=== PATIENT | female | born 1975 | race Asian ===

== ENCOUNTER 2016-12-08 00:06 | Emergency (ER) | payer OTHER ==
[~2016-12-08] VITALS: Ht 162.6 cm; Wt 86.4 kg
[2016-12-08] MEDS ORDERED: METF500T4 PO (00:26)
[2016-12-08] MEDS ORDERED: LISI-662 PO (00:26)
[2016-12-08] MEDS ORDERED: METO50 PO (00:26)
[2016-12-08] MEDS ORDERED: GLIP10 PO (00:26)
[2016-12-08] MEDS ORDERED: OMEG-53 PO (00:26)
[2016-12-08 00:32] LABS: GLUCOSE,POINT OF CARE 174 MG/DL (70-110)
[2016-12-08 02:04] LABS: BASOPHILS # (AUTO) 0.02 K/uL (0.00-0.20); BASOPHILS % (AUTO) 0.3 % (0.0-2.0); EOSINOPHILS # (AUTO) 0.19 K/uL (0.00-0.70); EOSINOPHILS % (AUTO) 1.96 % (1.0-6.0); HEMATOCRIT 40.7 % (36-46); HEMOGLOBIN 13.3 g/dL (12.0-16.0); LYMPHOCYTES # (AUTO) 3.4 K/uL (1.0-4.8); MEAN CORPUSCULAR HEMOGLOBIN 28.2 pg (26.0-34.0); MEAN CORPUSCULAR HGB CONC 32.6 G/dL (31.0-37.0); MEAN CORPUSCULAR VOLUME 87 fL (80-100); MONOCYTES # (AUTO) 0.7 K/uL (0.1-1.0); MONOCYTES % (AUTO) 7.3 % (2.0-9.0); NEUTROPHILS # (AUTO) 5.4 K/uL (1.8-7.7); NEUTROPHILS % (AUTO) 55.5 % (40.0-70.0); PLATELET COUNT (AUTO) 263 K/uL (150-450); RED BLOOD CELL COUNT(AUTO) 4.69 MIL/uL (4.00-5.20); RED CELL DISTRIBUTION WIDTH 13.8 % (11.5-14.5); WHITE BLOOD COUNT (AUTO) 9.8 K/uL (4.5-11.0)
[2016-12-08 02:15] LABS: INR 0.9 (0.9-1.1); PROTHROMBIN TIME 9.6 SEC (9.4-11.6)
[2016-12-08 02:22] LABS: ANION GAP 11 mmol/L (8-16); CALCIUM, TOTAL 9.3 mg/dL (8.8-10.5); CARBON DIOXIDE 28 mmol/L (22-29); CHLORIDE 104 mmol/L (98-107); CREATININE 0.72 mg/dL (0.60-1.30); GLOMERULAR FILTR. RATE CALC > 60 mL/min (>60); POTASSIUM 3.5 mmol/L (3.5-5.1); SODIUM SERUM 143 mmol/L (136-145); UREA NITROGEN, BLOOD 13 mg/dL (7-18)
[2016-12-08 02:46] LABS: ALANINE AMINOTRANSFERASE 62 U/L (12-78); ALBUMIN 3.5 g/dL (3.4-5.0); ASPARTATE AMINOTRANSFERASE 25 U/L (15-37); BILIRUBIN,TOTAL 0.2 mg/dL (0.1-1.0); CREATINE KINASE MB 0.7 ng/mL (0-5); CREATINE KINASE, TOTAL 98 U/L (26-192); TOTAL PROTEIN, SERUM 6.9 g/dL (6.4-8.2)
[2016-12-08] MEDS ORDERED: MECLIZINE HCL 25 MG TABLET PO ONE (03:00)
[2016-12-08 03:51] VITALS: BP 150/68
== END 2016-12-08 03:59 | disposition home or self-care (01) ==
LOC: EMS 00:09
DX: R42 Dizziness and giddiness (principal); J45.909 Unspecified asthma, uncomplicated; E11.9 Type 2 diabetes mellitus without complications; E78.00 Pure hypercholesterolemia, unspecified; I10 Essential (primary) hypertension
CPT/HCPCS: 70450; 82962; 93005; 99285

== ENCOUNTER 2017-07-04 21:29 | Emergency (ER) | payer SELFPAY ==
[~2017-07-04] VITALS: Ht 157.5 cm; Wt 81.8 kg
[~2017-07-04 21:29] MED LIST: GLIP10 PO; LISI-662 PO; METF500T4 PO; METO50 PO; OMEG-53 PO
[2017-07-04 21:53] LABS: GLUCOSE,POINT OF CARE 171 MG/DL (70-110)
[2017-07-04 22:42] LABS: BASOPHILS % (AUTO) 0.5 % (0.0-2.0); EOSINOPHILS % (AUTO) 1.7 % (1.0-6.0); HEMATOCRIT 38.5 % (36-46); HEMOGLOBIN 12.9 g/dL (12.0-16.0); LYMPHOCYTES # (AUTO) 2.4 K/uL (1.0-4.8); LYMPHOCYTES % (AUTO) 14.3 % (22.0-44.0); MEAN CORPUSCULAR HGB CONC 33.6 G/dL (31.0-37.0); MEAN CORPUSCULAR VOLUME 86 fL (80-100); NEUTROPHILS # (AUTO) 12.8 K/uL (1.8-7.7); NEUTROPHILS % (AUTO) 77.5 % (40.0-70.0); PLATELET COUNT (AUTO) 249 K/uL (150-450); RED BLOOD CELL COUNT(AUTO) 4.46 MIL/uL (4.00-5.20); RED CELL DISTRIBUTION WIDTH 13.7 % (11.5-14.5)
[2017-07-05] MEDS ORDERED: SODIUM CHLORIDE 0.9% 1,000 ML IV ONE (01:00)
[2017-07-05] MEDS ORDERED: KETOROLAC TROMETHAMINE 30 MG/ML VIAL IVP ONE (01:00)
[2017-07-05 01:47] VITALS: BP 122/81
== END 2017-07-05 02:08 | disposition home or self-care (01) ==
LOC: EMS 21:35
DX: O03.4 Incomplete spontaneous abortion without complication (principal); J45.909 Unspecified asthma, uncomplicated; E11.9 Type 2 diabetes mellitus without complications; E78.00 Pure hypercholesterolemia, unspecified; I10 Essential (primary) hypertension; Z88.8 Allergy status to other drugs, medicaments and biological substances
CPT/HCPCS: 36415; 76801; 76817; 82962; 84702; 85025; 86901; 88305; 96361; 96374; 99285; J1885; J7030

== ENCOUNTER 2018-03-07 22:17 | Emergency (ER) | payer SELFPAY ==
[~2018-03-07] VITALS: Ht 157.5 cm; Wt 81.8 kg
[~2018-03-07 22:17] MED LIST changes: +METF-960 PO; -METF500T4 PO; -METO50 PO
[2018-03-07] MEDS ORDERED: ASPI-556 PO (22:43)
[2018-03-07] MEDS ORDERED: CALC625T PO (22:43)
[2018-03-07 23:24] LABS: BASOPHILS % (AUTO) 0.7 % (0.0-2.0); EOSINOPHILS % (AUTO) 1.8 % (1.0-6.0); HEMOGLOBIN 12.7 g/dL (12.0-16.0); LYMPHOCYTES # (AUTO) 3.2 K/uL (1.0-4.8); LYMPHOCYTES % (AUTO) 31.8 % (22.0-44.0); MEAN CORPUSCULAR HEMOGLOBIN 29.2 pg (26.0-34.0); MEAN CORPUSCULAR HGB CONC 34.4 G/dL (31.0-37.0); MEAN CORPUSCULAR VOLUME 85 fL (80-100); MONOCYTES # (AUTO) 0.6 K/uL (0.1-1.0); MONOCYTES % (AUTO) 5.8 % (2.0-9.0); NEUTROPHILS % (AUTO) 59.9 % (40.0-70.0); PLATELET COUNT (AUTO) 257 K/uL (150-450); RED BLOOD CELL COUNT(AUTO) 4.36 MIL/uL (4.00-5.20); RED CELL DISTRIBUTION WIDTH 13.5 % (11.5-14.5)
[2018-03-07 23:34] LABS: ANION GAP 6 mmol/L (8-16); CALCIUM, TOTAL 8.3 mg/dL (8.8-10.5); CARBON DIOXIDE 28 mmol/L (22-29); CHLORIDE 105 mmol/L (98-107); CREATININE 0.77 mg/dL (0.60-1.30); GLOMERULAR FILTR. RATE CALC > 60 mL/min (>60); GLUCOSE,RANDOM 176 mg/dL (70-110); SODIUM SERUM 139 mmol/L (136-145); UREA NITROGEN, BLOOD 14 mg/dL (7-18)
[2018-03-07 23:40] LABS: ALANINE AMINOTRANSFERASE 21 U/L (12-78); ALBUMIN 3.2 g/dL (3.4-5.0); ALKALINE PHOSPHATASE 79 U/L (46-116); ASPARTATE AMINOTRANSFERASE 9 U/L (15-37); BILIRUBIN,TOTAL 0.2 mg/dL (0.1-1.0)
[2018-03-08 01:05] VITALS: BP 146/86
== END 2018-03-08 01:13 | disposition home or self-care (01) ==
LOC: EMS 22:19
DX: R42 Dizziness and giddiness (principal); I10 Essential (primary) hypertension; E11.9 Type 2 diabetes mellitus without complications; E78.00 Pure hypercholesterolemia, unspecified; J45.909 Unspecified asthma, uncomplicated; Z79.84 Long term (current) use of oral hypoglycemic drugs; Z79.82 Long term (current) use of aspirin
CPT/HCPCS: 70450; 93005; 99285

== ENCOUNTER 2019-04-02 21:06 | Emergency (ER) | payer OTHER ==
[~2019-04-02] VITALS: Ht 157.5 cm; Wt 81.8 kg
[~2019-04-02 21:06] MED LIST changes: +ASPI-556 PO; +CALC625T PO
[2019-04-02 21:28] LABS: GLUCOSE,POINT OF CARE 239 MG/DL (70-110)
[2019-04-02 21:59] LABS: BASOPHILS % (AUTO) 0.5 % (0.0-2.0); EOSINOPHILS % (AUTO) 1.6 % (1.0-6.0); HEMATOCRIT 41.7 % (36-46); LYMPHOCYTES # (AUTO) 2.9 K/uL (1.0-4.8); LYMPHOCYTES % (AUTO) 29.2 % (22.0-44.0); MEAN CORPUSCULAR HEMOGLOBIN 29.2 pg (26.0-34.0); MEAN CORPUSCULAR HGB CONC 33.6 G/dL (31.0-37.0); MEAN CORPUSCULAR VOLUME 87 fL (80-100); MONOCYTES # (AUTO) 0.6 K/uL (0.1-1.0); MONOCYTES % (AUTO) 5.7 % (2.0-9.0); NEUTROPHILS # (AUTO) 6.4 K/uL (1.8-7.7); PLATELET COUNT (AUTO) 268 K/uL (150-450); RED BLOOD CELL COUNT(AUTO) 4.81 MIL/uL (4.00-5.20); RED CELL DISTRIBUTION WIDTH 13.1 % (11.5-14.5)
[2019-04-02] MEDS ORDERED: SODIUM CHLORIDE 0.9% 1,000 ML IV ONE (22:00)
[2019-04-02] MEDS ORDERED: METOCLOPRAMIDE HCL 5 MG/ML 2 ML VIAL IVP ONE (22:00)
[2019-04-02] MEDS ORDERED: DiphenhydrAMINE HCL 50 MG/ML VIAL IVP ONE (22:00)
[2019-04-02] MEDS ORDERED: LIDOCAINE 5% TRANSDERMAL PATCH TD ONE (22:00)
[2019-04-02] MEDS ORDERED: DEXAMETHASONE SOD PHOS 4 MG/ML 5 ML VIAL IVP ONE (22:00)
[2019-04-02] MEDS ORDERED: KETOROLAC TROMETHAMINE 30 MG/ML VIAL IVP ONE (22:00)
[2019-04-02 22:11] LABS: ANION GAP 7 mmol/L (8-16); CALCIUM, TOTAL 8.6 mg/dL (8.8-10.5); CARBON DIOXIDE 28 mmol/L (22-29); CHLORIDE 100 mmol/L (98-107); CREATININE 0.81 mg/dL (0.60-1.30); GLOMERULAR FILTR. RATE CALC > 60 mL/min (>60); GLUCOSE,RANDOM 271 mg/dL (70-110); POTASSIUM 3.5 mmol/L (3.5-5.1); SODIUM SERUM 135 mmol/L (136-145)
[2019-04-02 22:32] LABS: ALANINE AMINOTRANSFERASE 20 U/L (12-78); ALBUMIN 3.4 g/dL (3.4-5.0); ALKALINE PHOSPHATASE 70 U/L (46-116); ASPARTATE AMINOTRANSFERASE 10 U/L (15-37); BILIRUBIN,TOTAL 0.2 mg/dL (0.1-1.0); CREATINE KINASE, TOTAL ONLY 102 U/L (26-192); TOTAL PROTEIN, SERUM 7.3 g/dL (6.4-8.2); UREA NITROGEN, BLOOD 15 mg/dL (7-18)
[2019-04-03] MEDS ORDERED: CYCLOBENZAPRINE HCL 10 MG TABLET PO ONE (00:30)
[2019-04-03] MEDS ORDERED: LIDOCAINE 5% TRANSDERMAL PATCH TD ONE (00:30)
[2019-04-03 01:05] VITALS: BP 141/96
== END 2019-04-03 01:36 | disposition home or self-care (01) ==
LOC: EMS 21:06
DX: R51 Headache (principal); M54.2 Cervicalgia; R42 Dizziness and giddiness; J45.909 Unspecified asthma, uncomplicated; E11.9 Type 2 diabetes mellitus without complications; I10 Essential (primary) hypertension; E78.00 Pure hypercholesterolemia, unspecified; Z79.899 Other long term (current) drug therapy; Z79.84 Long term (current) use of oral hypoglycemic drugs; Z79.82 Long term (current) use of aspirin
CPT/HCPCS: 36415; 80053; 82550; 82962; 84484; 85025; 93005; 96374; 96375; 99284; J1100; J1200; J1885; J2765; J7030; 10060

== ENCOUNTER 2022-02-04 16:43 | Emergency (ER) | payer OTHER ==
[~2022-02-04] VITALS: Ht 162.6 cm; Wt 86.4 kg
[~2022-02-04 16:43] MED LIST changes: -GLIP10 PO; +GLIP10TA10 PO; -LISI-662 PO; +LISI-894 PO; +METF-1211 PO; -METF-960 PO
[2022-02-04 18:46] VITALS: BP 135/74
[2022-02-04] MEDS ORDERED: ACET-66 PO (20:03)
[2022-02-04] MEDS ORDERED: IBUP-1506 PO (20:03)
== END 2022-02-04 18:47 | disposition home or self-care (01) ==
LOC: EMS 16:44
DX: S93.401A Sprain of unspecified ligament of right ankle, initial encounter (principal); S76.312A Strain of muscle, fascia and tendon of the posterior muscle group at thigh level, left thigh, initial encounter; J45.909 Unspecified asthma, uncomplicated; E11.9 Type 2 diabetes mellitus without complications; E78.00 Pure hypercholesterolemia, unspecified; I10 Essential (primary) hypertension; W01.0XXA Fall on same level from slipping, tripping and stumbling without subsequent striking against object, initial encounter; Y93.89 Activity, other specified; Y92.89 Other specified places as the place of occurrence of the external cause; Y99.8 Other external cause status
CPT/HCPCS: 99283

== ENCOUNTER 2024-09-28 17:43 | Emergency (ER) | payer OTHER ==
[~2024-09-28] VITALS: Ht 152.4 cm; Wt 81.8 kg
[~2024-09-28 17:43] MED LIST changes: +ACET-66 PO; -GLIP10TA10 PO; +GLIP10TA17 PO; +IBUP-1506 PO
[2024-09-28] MEDS ORDERED: DICL100G60 TP (17:54)
[2024-09-28] MEDS ORDERED: FLUC150T61 PO (17:54)
[2024-09-28] MEDS ORDERED: GLIP-300 PO (17:54)
[2024-09-28] MEDS ORDERED: LISI1TAB53 PO (17:54)
[2024-09-28] MEDS ORDERED: BLOO-1103 MISC (17:54)
[2024-09-28] MEDS ORDERED: [UNRECOGNIZED DRUG - CODE] (17:54)
[2024-09-28] MEDS ORDERED: ESTR42.510 VG (17:54)
[2024-09-28] MEDS ORDERED: CYCL5TAB3 PO (17:54)
[2024-09-28] MEDS ORDERED: NAPR-1196 PO (17:54)
[2024-09-28] MEDS ORDERED: [UNRECOGNIZED DRUG - CODE] TP (17:54)
[2024-09-28] MEDS ORDERED: ROSU10TA72 PO (17:54)
[2024-09-28] MEDS ORDERED: METF-446 PO (17:54)
[2024-09-28] MEDS ORDERED: AMLO10TA55 PO (17:54)
[2024-09-28 19:30] VITALS: BP 135/75; PULSE 71; RESP 18; TEMP 97.3; O2SAT 99
[2024-09-28] MEDS: ACETAMINOPHEN 500 MG TABLET PO ONE (19:51)
[2024-09-28] MEDS: LORazepam 1 MG TABLET PO ONE (19:51)
[2024-09-28] MEDS: methocarbamoL 500 MG TABLET PO ONE (19:52)
[2024-09-28] MEDS: KETOROLAC TROMETHAMINE 60 MG/2 ML VIAL IM ONE (19:53)
[2024-09-28] MEDS ORDERED: IBUP-1554 PO (20:19)
[2024-09-28] MEDS ORDERED: LORA1TAB25 PO (20:19)
[2024-09-28] MEDS ORDERED: ACET-2080 PO (20:19)
[2024-09-28] MEDS ORDERED: METH-812 PO (20:19)
== END 2024-09-28 20:40 | disposition left against medical advice (07) ==
LOC: EMS 17:47
DX: F43.9 Reaction to severe stress, unspecified (principal); R25.2 Cramp and spasm; R42 Dizziness and giddiness; I10 Essential (primary) hypertension; J45.909 Unspecified asthma, uncomplicated; E78.00 Pure hypercholesterolemia, unspecified; E11.9 Type 2 diabetes mellitus without complications; Z79.899 Other long term (current) drug therapy
CPT/HCPCS: 99284; 93005; 96372; J1885

== ENCOUNTER 2025-03-15 01:19 | Emergency (ER) | payer OTHER ==
[~2025-03-15] VITALS: Ht 152.4 cm; Wt 61.4 kg
[~2025-03-15 01:19] MED LIST changes: +ACET-2080 PO; -ACET-66 PO; +AMLO10TA55 PO; -ASPI-556 PO; +BLOO-1103 MISC; -CALC625T PO; +CYCL5TAB3 PO; +DICL100G60 TP; +ESTR42.510 VG; +GLIP-300 PO; -GLIP10TA17 PO; -IBUP-1506 PO; +IBUP-1554 PO; -LISI-894 PO; +LISI1TAB53 PO; +LORA1TAB25 PO; -METF-1211 PO; +METF-446 PO; +METH-812 PO; +NAPR-1196 PO; -OMEG-53 PO; +ROSU10TA98 PO; +[UNRECOGNIZED DRUG - CODE]; +[UNRECOGNIZED DRUG - CODE] TP
[2025-03-15 01:20] VITALS: TEMP 98
[2025-03-15 02:27] VITALS: BP 156/86; PULSE 70; RESP 16; O2SAT 95
[2025-03-15] MEDS: IBUPROFEN 400 MG TABLET PO ONE (03:42)
[2025-03-15] MEDS: ACETAMINOPHEN 500 MG TABLET PO ONE (03:43)
[2025-03-15] MEDS ORDERED: ACET-3385 PO (04:24)
== END 2025-03-15 04:28 | disposition home or self-care (01) ==
LOC: EMS 01:19
DX: S93.401A Sprain of unspecified ligament of right ankle, initial encounter (principal); E11.9 Type 2 diabetes mellitus without complications; E78.00 Pure hypercholesterolemia, unspecified; I10 Essential (primary) hypertension; J45.909 Unspecified asthma, uncomplicated; Z79.899 Other long term (current) drug therapy; X50.1XXA Overexertion from prolonged static or awkward postures, initial encounter; Y93.01 Activity, walking, marching and hiking; Y92.89 Other specified places as the place of occurrence of the external cause; Y99.0 Civilian activity done for income or pay
CPT/HCPCS: 99283

== ENCOUNTER 2025-03-17 11:16 | Emergency (ER) | payer OTHER ==
[~2025-03-17] VITALS: Ht 157.5 cm; Wt 72.7 kg
[~2025-03-17 11:16] MED LIST changes: +ACET-3385 PO
[2025-03-17 11:22] VITALS: TEMP 98.3
[2025-03-17] MEDS ORDERED: INSULIN REGULAR, HUMAN 100 UNITS/ML IVP ONE (12:30)
[2025-03-17 12:39] LABS: PLATELET COUNT (AUTO) 224 K/uL (150-450); RED BLOOD CELL COUNT(AUTO) 5.03 MIL/uL (4.00-5.20); RED CELL DISTRIBUTION WIDTH 14.1 % (11.5-14.5); WHITE BLOOD COUNT (AUTO) 6.3 K/uL (4.5-11.0)
[2025-03-17] MEDS: SODIUM CHLORIDE 0.9% 2,000 ML IV ONE (12:45)
[2025-03-17 13:03] LABS: CALCIUM, TOTAL 9.3 mg/dL (8.8-10.5); CREATININE 0.66 mg/dL (0.60-1.30); GLOMERULAR FILTR. RATE CALC > 60 mL/min (>60); SODIUM SERUM 136 mmol/L (136-145); UREA NITROGEN, BLOOD 14 mg/dL (7-18)
[2025-03-17 13:05] LABS: GLUCOSE,RANDOM 485 mg/dL (70-110)
[2025-03-17] MEDS: INSULIN REGULAR, HUMAN 100 UNITS/ML IVP ONE (13:36)
[2025-03-17 13:41] LABS: GLUCOMETER DEV NAME(LOC) ER.7; GLUCOSE,POINT OF CARE 355 MG/DL (70-110)
[2025-03-17 14:11] VITALS: BP 152/82; PULSE 77; RESP 18; O2SAT 95
[2025-03-17] MEDS ORDERED: CLOT15CR5 TP (14:20)
[2025-03-17 14:21] LABS: GLUCOMETER DEV NAME(LOC) ER.7; GLUCOSE,POINT OF CARE 279 MG/DL (70-110)
== END 2025-03-17 14:37 | disposition home or self-care (01) ==
LOC: EMS 11:16
DX: E11.65 Type 2 diabetes mellitus with hyperglycemia (principal); S93.401A Sprain of unspecified ligament of right ankle, initial encounter; L30.9 Dermatitis, unspecified; E78.00 Pure hypercholesterolemia, unspecified; I10 Essential (primary) hypertension; J45.909 Unspecified asthma, uncomplicated; Z79.84 Long term (current) use of oral hypoglycemic drugs; Z79.899 Other long term (current) drug therapy
CPT/HCPCS: 99283; 96374; 96361; 80048; 82009; 82962; 85025; 36415; J7030; J1815